=== PATIENT | female | born 1985 | race American Indian/Alaskan Native ===

== ENCOUNTER 2019-08-17 03:04 | Emergency (ER) | payer SELFPAY ==
[2019-08-17 03:18] VITALS: BP 118/76
[2019-08-17 03:45] LABS: Basophils # (Auto) 0.1 K/mm3 (0.0-0.1); Basophils % (Auto) 0.3 % (0.0-1.8); Eosinophils # (Auto) 0.2 K/mm3 (0.0-0.4); Eosinophils % (Auto) 1.5 % (0.0-4.3); Hematocrit 36.3 % (30.3-42.9); Hemoglobin 12.1 gm/dl (10.1-14.3); Lymphocytes # (Auto) 3.8 K/mm3 (1.2-5.4); Lymphocytes % (Auto) 23.4 % (13.4-35.0); Mean Corpuscular HGB Conc 33 % (30-34); Mean Corpuscular Volume 88 fl (79-97); Monocytes # (Auto) 0.9 K/mm3 (0.0-0.8); Monocytes % (Auto) 5.8 % (0.0-7.3); Platelet Count 202 K/mm3 (140-440); Red Blood Count 4.11 M/mm3 (3.65-5.03); Red Cell Distribution Width 13.5 % (13.2-15.2)
[2019-08-17 04:06] LABS: Alanine Aminotransferase 13 units/L (7-56); Albumin 4.1 g/dL (3.9-5); BUN/Creatinine Ratio 11; Blood Urea Nitrogen 8 mg/dL (7-17); Calcium 9.2 mg/dL (8.4-10.2); Hemolysis Index 7
== END 2019-08-17 04:10 | disposition left against medical advice (07) ==
LOC: ED 03:04
DX: R53.1 Weakness (principal); Z53.21 Procedure and treatment not carried out due to patient leaving prior to being seen by health care provider
CPT/HCPCS: 36415; 80053; 84702; 85025

== ENCOUNTER 2019-08-26 10:24 | Emergency (ER) | payer MEDICAID ==
[2019-08-26 10:33] VITALS: BP 146/68
[2019-08-26 11:40] LABS: Basophils # (Auto) 0.1 K/mm3 (0.0-0.1); Basophils % (Auto) 0.5 % (0.0-1.8); Eosinophils # (Auto) 0.3 K/mm3 (0.0-0.4); Eosinophils % (Auto) 1.7 % (0.0-4.3); Hematocrit 38.1 % (30.3-42.9); Hemoglobin 12.8 gm/dl (10.1-14.3); Lymphocytes # (Auto) 2.5 K/mm3 (1.2-5.4); Lymphocytes % (Auto) 15.3 % (13.4-35.0); Mean Corpuscular HGB Conc 34 % (30-34); Mean Corpuscular Volume 87 fl (79-97); Monocytes # (Auto) 0.9 K/mm3 (0.0-0.8); Monocytes % (Auto) 5.5 % (0.0-7.3); Platelet Count 228 K/mm3 (140-440); Red Blood Count 4.36 M/mm3 (3.65-5.03); Red Cell Distribution Width 13.8 % (13.2-15.2)
[2019-08-26] MEDS ORDERED: SODIUM CHLORIDE 0.9% 1000 ML 1,000 ML IV ONE (11:59)
[2019-08-26] MEDS ORDERED: ONDANSETRON 4 MG/2 ML INJ IV ONE (11:59)
[2019-08-26] MEDS ORDERED: ACETAMINOPHEN 325 MG TAB PO ONE (11:59)
[2019-08-26 12:01] LABS: Alanine Aminotransferase 11 units/L (7-56); Albumin 4.2 g/dL (3.9-5); BUN/Creatinine Ratio 10; Blood Urea Nitrogen 5 mg/dL (7-17); Calcium 9.5 mg/dL (8.4-10.2); Hemolysis Index 6
--- NOTE | 2019-08-26 12:05 | Emergency Department Report ---
ED General Adult HPI - General Chief complaint: Abdominal Pain Stated complaint: 13 WKS PREG, PAIN Time Seen by Provider: 08/26/19 11:14 Source: patient Mode of arrival: Ambulatory Limitations: No Limitations - History of Present Illness Initial comments: Patient is a 34-year-old female presents emergency room with complaints of lower back discomfort and urine urinary frequency that began a week ago. She states that she is also been having nausea and clear vaginal discharge. She denies any dysuria, vomiting, diarrhea, vaginal bleeding, abdominal pain. she denies any fever or cough. She states her last menstrual cycle was May 2019. She stat es that she has not seen anyone for this . She denies any past medical history allergies to medications. /P:3/A:4 Severity scale (0 -10): 0 - Related Data Previous Rx's Medication Instructions Recorded Last Taken Type Acetaminophen [Tylenol] 650 mg PO Q8HR PRN #20 capsule 08/26/19 Unknown Rx metroNIDAZOLE [Flagyl] 500 mg PO BID 7 Days #14 tab 08/26/19 Unknown Rx Allergies Allergy/AdvReac Type Severity Reaction Status Date / Time No Known Allergies Allergy Verified 08/26/19 10:25 ED Review of Systems ROS: Stated complaint: 13 WKS PREG, PAIN Other details as noted in HPI Comment: All other systems reviewed and negative ED Past Medical Hx - Surgical History Hx Cholecystectomy: Yes Hx Appendectomy: Yes - Social History Smoking Status: Never Smoker Substance Use Type: None - Medications Home Medications: Home Medications Medication Instructions Recorded Confirmed Last Taken Type Acetaminophen [Tylenol] 650 mg PO Q8HR PRN #20 capsule 08/26/19 Unknown Rx metroNIDAZOLE [Flagyl] 500 mg PO BID 7 Days #14 tab 08/26/19 Unknown Rx ED Physical Exam - General Limitations: No Limitations General appearance: alert, in no apparent distress - Head Head exam: Present: atraumatic, normocephalic - Eye Eye exam: Present: normal appearance - ENT ENT exam: Present: mucous membranes moist - Respiratory Respiratory exam: Present: normal lung sounds bilaterally. Absent: respiratory distress, wheezes, rales, rhonchi, stridor, chest wall tenderness, accessory muscle use, decreased breath sounds, prolonged expiratory - Cardiovascular Cardiovascular Exam: Present: regular rate, normal rhythm, normal heart sounds. Absent: systolic murmur, diastolic murmur, rubs, gallop - GI/Abdominal GI/Abdominal exam: Present: soft, normal bowel sounds. 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 Absent: erythema, vaginal bleeding, foreign body, tissue, laceration Bi-manual exam: Present: normal bi-manual exam. Absent: cervical motion tendernes, adnexal tenderness, adnexal mass - Back Exam Back exam: Absent: CVA tenderness (R), CVA tenderness (L) - Neurological Exam Neurological exam: Present: alert, oriented X3 - Psychiatric Psychiatric exam: Present: normal affect, normal mood - Skin Skin exam: Present: warm, dry, intact ED Course Vital Signs 08/26/19 08/26/19 10:32 11:50 Temperature 98.2 F Pulse Rate 94 H Respiratory 18 18 Rate Blood Pressure 146/68 [Right] O2 Sat by Pulse 97 Oximetry ED Medical Decision Making - Lab Data Result diagrams: 08/26/19 11:18 08/26/19 11:18 Lab Results 08/26/19 08/26/19 08/26/19 Range/Units 11:18 11:18 11:18 WBC 16.5 H (4.5-11.0) K/mm3 RBC 4.36 (3.65-5.03) M/mm3 Hgb 12.8 (10.1-14.3) gm/dl Hct 38.1 (30.3-42.9) % MCV 87 (79-97) fl MCH 29 (28-32) pg MCHC 34 (30-34) % RDW 13.8 (13.2-15.2) % Plt Count 228 (140-440) K/mm3 Lymph % (Auto) 15.3 (13.4-35.0) % [place] % (Auto) 5.5 (0.0-7.3) % Eos % (Auto) 1.7 (0.0-4.3) % Baso % (Auto) 0.5 (0.0-1.8) % Lymph # 2.5 (1.2-5.4) K/mm3 [place] # 0.9 H (0.0-0.8) K/mm3 Eos # 0.3 (0.0-0.4) K/mm3 Baso # 0.1 (0.0-0.1) K/mm3 Seg Neutrophils % 77.0 H (40.0-70.0) % Seg Neutrophils # 12.7 H (1.8-7.7) K/mm3 Sodium 134 L (137-145) mmol/L Potassium 3.7 (3.6-5.0) mmol/L Chloride 99.9 (98-107) mmol/L Carbon Dioxide 19 L (22-30) mmol/L Anion Gap 19 mmol/L BUN 5 L (7-17) mg/dL Creatinine 0.5 L (0.7-1.2) mg/dL Estimated GFR > 60 ml/min BUN/Creatinine Ratio 10 % Glucose 113 H (65-100) mg/dL Calcium 9.5 (8.4-10.2) mg/dL Total Bilirubin < 0.20 (0.1-1.2) mg/dL AST 13 (5-40) units/L ALT 11 (7-56) units/L Alkaline Phosphatase 53 (35-129) units/L Total Protein 7.5 (6.3-8.2) g/dL Albumin 4.2 (3.9-5) g/dL Albumin/Globulin Ratio 1.3 % HCG, Quant [id number] H (0-4) mIU/mL Urine Color (Yellow) Urine Turbidity (Clear) Urine pH (5.0-7.0) Ur Specific [place] (1.003-1.030) Urine Protein (Negative) mg/dL Urine Glucose (UA) (Negative) mg/dL Urine Ketones (Negative) mg/dL Urine Blood (Negative) Urine Nitrite (Negative) Urine Bilirubin (Negative) Urine Urobilinogen (<2.0) mg/dL Ur Leukocyte Esterase (Negative) Urine WBC (Auto) (0.0-6.0) /HPF Urine RBC (Auto) (0.0-6.0) /HPF U Epithel Cells (Auto) (0-13.0) /HPF Urine Bacteria (Auto) (Negative) /HPF Urine Mucus /HPF Blood Type 08/26/19 08/26/19 Range/Units 11:18 12:00 WBC (4.5-11.0) K/mm3 RBC (3.65-5.03) M/mm3 Hgb (10.1-14.3) gm/dl Hct (30.3-42.9) % MCV (79-97) fl MCH (28-32) pg MCHC (30-34) % RDW (13.2-15.2) % Plt Count (140-440) K/mm3 Lymph % (Auto) (13.4-35.0) % [place] % (Auto) (0.0-7.3) % Eos % (Auto) (0.0-4.3) % Baso % (Auto) (0.0-1.8) % Lymph # (1.2-5.4) K/mm3 [place] # (0.0-0.8) K/mm3 Eos # (0.0-0.4) K/mm3 Baso # (0.0-0.1) K/mm3 Seg Neutrophils % (40.0-70.0) % Seg Neutrophils # (1.8-7.7) K/mm3 Sodium (137-145) mmol/L Potassium (3.6-5.0) mmol/L Chloride (98-107) mmol/L Carbon Dioxide (22-30) mmol/L Anion Gap mmol/L BUN (7-17) mg/dL Creatinine (0.7-1.2) mg/dL Estimated GFR ml/min BUN/Creatinine Ratio % Glucose (65-100) mg/dL Calcium (8.4-10.2) mg/dL Total Bilirubin (0.1-1.2) mg/dL AST (5-40) units/L ALT (7-56) units/L Alkaline Phosphatase (35-129) units/L Total Protein (6.3-8.2) g/dL Albumin (3.9-5) g/dL Albumin/Globulin Ratio % HCG, Quant (0-4) mIU/mL Urine Color Yellow (Yellow) Urine Turbidity Clear (Clear) Urine pH 6.0 (5.0-7.0) Ur Specific [place] 1.012 (1.003-1.030) Urine Protein <15 mg/dl (Negative) mg/dL Urine Glucose (UA) Neg (Negative) mg/dL Urine Ketones Neg (Negative) mg/dL Urine Blood Neg (Negative) Urine Nitrite Neg (Negative) Urine Bilirubin Neg (Negative) Urine Urobilinogen < 2.0 (<2.0) mg/dL Ur Leukocyte Esterase Neg (Negative) Urine WBC (Auto) 1.0 (0.0-6.0) /HPF Urine RBC (Auto) 2.0 (0.0-6.0) /HPF U Epithel Cells (Auto) 5.0 (0-13.0) /HPF Urine Bacteria (Auto) 4+ (Negative) /HPF Urine Mucus Few /HPF Blood Type O POSITIVE - Radiology Data Radiology results: report reviewed OB Ultrasound HISTORY: 13 weeks, abd pain. TECHNIQUE: Grayscale and color imaging performed. COMPARISON: None FINDINGS: Uterus measures 11.9 x 8.0 x 8.6 cm. There are 3 cystic structures within the uterine canal, 2 of which are empty and of one of which contains a viable intrauterine gestation with crown- rump length measuring 2.4 cm which would correspond with an EGA of 9 weeks and 0 days. The mean sac diameter is 5.3 cm which corresponds with an EGA of 11 weeks and 1 day. The overall EGA by ultrasound is 10 weeks and 1 day with estimated delivery date of 03/22/2020. The other 2 cystic structures which may reflect empty gestational sacs correspond with gestational age of 7 weeks and 3 days and 6 weeks and 6 days by mean sac diameter but again these are empty. The ovaries appear unremarkable. No pelvic free fluid. IMPRESSION: 1. 3 separate cystic structures in the endometrial canal, one of which contains a viable intrauterine gestation as above and the other 2 are empty. Otherwise nothing acute. Signer Name: Rod Wen MD Signed: 08/26/2019 12:03 PM Workstation Name: [id number] Transcribed By: ANGELICA Dictated By: Rod Wen MD Electronically Authenticated By: Rod Wen MD Signed Date/Time: 08/26/19 1203 DD/ 1201 TD/TT: - Medical Decision Making Patient is a 34-year-old female presents emergency room with complaints of lower back discomfort and urine urinary frequency that began a week ago. She states that she is also been having nausea and clear vaginal discharge. She denies any dysuria, vomiting, diarrhea, vaginal bleeding, abdominal pain. she denies any fever or cough. She states her last menstrual cycle was May 2019. She states that she has not seen anyone for this . She denies any past medical history allergies to medications. /P:3/A:4. Vitals are normal. Nonspecific white blood cell elevation, hcg quant is [id number], UA without UTI, wet prep shows BV. G/C swab sent, I offered pt prophylactic treatment, and she declined stating she would like to wait for her results. OB US: 1. 3 separate cystic structures in the endometrial canal, one of which contains a viable intrauterine gestation as above and the other 2 are empty. Otherwise nothing acu te. On exam breath sounds are clear bilaterally, patient has not had a cough or fever. Discussed all results with patient. Discussed with patient the importance of very close OB follow-up, she verbalized understanding. Patient given 1 L IV fluids, Zofran, Tylenol and was feeling much better and ready to go home. Patient given prescription for Flagyl for BV and Tylenol to take as needed for pain. advised pt Please take medication as prescribed. Please take a vitamin [id number]. 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 Follow-up with an S[facility] MACHINE OPERATOR in the next 3 to 5 days. Return to the e mergency room immediately for any new or worsening symptoms. Critical care attestation.: If time is entered above; I have spent that time in minutes in the direct care of this critically ill patient, excluding procedure time. ED Disposition Clinical Impression: Bacterial vaginosis Lower back pain Qualifiers: Chronicity: acute Back pain laterality: unspecified Sciatica presence: without sciatica Qualified Code(s): M54.5 - Low back pain Multiple Qualifiers: Multiple gestation fetus number: triplet gestation Multiple gestation type: unspecified Trimester: first trimester Qualified Code(s): O30.101 - Triplet , unspecified number of placenta and unspecified number of amniotic sacs, first trimester Disposition: - TO HOME OR SELFCARE Is pt being admited?: No Does the pt Need Aspirin: No Condition: Stable Instructions: Bacterial Vaginosis (ED), Abdominal Pain (ED) Additional Instructions: Please take medication as prescribed. Please take a vitamin [id number]. 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 Follow- up with an SCROLL MACHINE OPERATOR in the next 3 to 5 days. Return to the emergency room immediately for any new or worsening symptoms. Prescriptions: metroNIDAZOLE [Flagyl] 500 mg PO BID 7 Days #14 tab Acetaminophen [Tylenol] 650 mg PO Q8HR PRN #20 capsule PRN Reason: pain Referrals: [facility] [Provider Group] - 3-5 Days [facility] [Provider Group] - 3-5 Days [facility] [Provider Group] - 3-5 Days Forms: STI Treatment and Prevention Time of Disposition: 14:18 Print Language: CAMBODIAN
--- NOTE | 2019-08-26 12:08 | Ultrasound Report ---
OB Ultrasound HISTORY: 13 weeks, abd pain. TECHNIQUE: Grayscale and color imaging performed. COMPARISON: None FINDINGS: Uterus measures 11.9 x 8.0 x 8.6 cm. There are 3 cystic structures within the uterine canal , 2 of which are empty and of one of which contains a viable intrauterine gestation with crown-rump l ength measuring 2.4 cm which would correspond with an EGA of 9 weeks and 0 days. The mean sac diamete r is 5.3 cm which corresponds with an EGA of 11 weeks and 1 day. The overall EGA by ultrasound is 10 weeks and 1 day with estimated delivery date of 03/22/2020. The other 2 cystic structures which may r eflect empty gestational sacs correspond with gestational age of 7 weeks and 3 days and 6 weeks and 6 days by mean sac diameter but again these are empty. The ovaries appear unremarkable. No pelvic free fluid. IMPRESSION: 1. 3 separate cystic structures in the endometrial canal, one of which contains a viable intrauterine gestation as above and the other 2 are empty. Otherwise nothing acute. Signer Name: Rod Wen MD Signed: 08/26/2019 12:03 PM Workstation Name: [id number]
[2019-08-26 12:37] LABS: Bacteria,Urine 4+ /HPF (Negative); Bilirubin,Urine NEG (Negative); Blood,Urine NEG (Negative); Color,Urine Yellow (Yellow); Mucus,Urine FEW /HPF; Protein,Urine <15 mg/dL mg/dL (Negative); Urobilinogen,Urine < 2.0 mg/dL (<2.0)
== END 2019-08-26 14:53 | disposition home or self-care (01) ==
LOC: ED 10:24
DX: O23.591 Infection of other part of genital tract in pregnancy, first trimester (principal); O30.101 Triplet pregnancy, unspecified number of placenta and unspecified number of amniotic sacs, first trimester; M54.5 Low back pain; Z3A.11 11 weeks gestation of pregnancy; Z90.49 Acquired absence of other specified parts of digestive tract; Z79.899 Other long term (current) drug therapy
CPT/HCPCS: 36415; 76801; 80053; 81001; 84702; 85025; 86900; 86901; 87210; 87591; 96374; 99284; J2405; J7030